=== PATIENT | female | born 1985 | race Caucasian/White ===

== ENCOUNTER 2022-09-24 14:59 | Outpatient (CLI) | payer BC, SELFPAY | END 2022-09-24 15:00 | disposition home or self-care (01) | PROVIDERS: Visit Provider Student in an Organized Health Care Education/Training Program | DX: J02.0 Streptococcal pharyngitis (principal); R53.83 Other fatigue | CPT/HCPCS: 87651 ==

== ENCOUNTER 2023-12-28 11:11 | Outpatient (CLI) | payer BC, SELFPAY | END 2023-12-28 11:12 | disposition home or self-care (01) | LOC: NFLDREF 12-29 09:49 | PROVIDERS: Visit Provider Nurse Practitioner | DX: R30.9 Painful micturition, unspecified (principal) | CPT/HCPCS: 87086 ==